=== PATIENT | male | born 1955 | race Two or more races ===

== ENCOUNTER 2018-01-02 20:20 | Emergency (ER) | payer MEDICAID ==
[~2018-01-02] VITALS: Ht 185.4 cm; Wt 68.0 kg
[2018-01-02 20:26] VITALS: BP 143/85
[2018-01-02] MEDS ORDERED: VITAMIN B-1100 MG ORAL (20:29)
[2018-01-02] MEDS ORDERED: VITAMIN D250000 UNI1 ORAL (20:29)
[2018-01-02] MEDS ORDERED: FOLIC ACID1 MG ORAL (20:29)
[2018-01-02] MEDS ORDERED: IBUPROFEN600 MG ORAL (20:29)
[2018-01-02] MEDS ORDERED: DAILY VITE1 EACH ORAL (20:29)
[2018-01-02] MEDS ORDERED: BANOPHEN25 M1 PO (20:29)
[2018-01-02 21:00] VITALS: BP 137/88
--- NOTE | 2018-01-03 16:14 | Emergency Room Report ---
History of Present Illness General Chief Complaint: Multiple Trauma/Fall Source: Patient Present Illness HPI 62-year-old male presents ED for evaluation. Patient brought in by EMS. Patient is status post alcohol intoxication. Admits to drinking today. Patient was found on the floor. Patient denies falling or hitting his head. Denies drug use. Denies any headache. Denies any nausea or vomiting. Denies any abdominal pain. No other aggravating relieving factors. Denies any other associated symptoms Allergies: Coded Allergies: PENICILLINS (Verified Allergy, Unknown, 01/02/18) Patient History Past Medical History: none Past Surgical History: none Pertinent Family History: none Social History: Reports: alcohol use; Denies: smoking, drug use Immunizations: UTD Reviewed Nursing Documentation: PMH: Agreed; PSxH: Agreed Review of Systems All Other Systems: negative except mentioned in HPI Physical Exam Vital Signs Date Time Temp Pulse Resp B/P (MAP) Pulse Ox O2 Delivery O2 Flow Rate FiO2 01/02/18 20:16 97.8 74 16 143/85 100 Room Air 97.9 Sp02 EP Interpretation: reviewed, normal General Appearance: no apparent distress, alert, GCS 15, non-toxic Head: normocephalic, atraumatic Eyes: bilateral eye normal inspection, bilateral eye PERRL ENT: hearing grossly normal, normal pharynx, no angioedema, normal voice Neck: full range of motion, supple/symm/no masses Respiratory: chest non-tender, lungs clear, normal breath sounds, speaking full sentences Cardiovascular #1: regular rate, rhythm, no edema Cardiovascular #2: 2+ carotid (R), 2+ carotid (L), 2+ radial (R), 2+ radial (L) , 2+ dorsalis pedis (R), 2+ dorsalis pedis (L) Gastrointestinal: normal bowel sounds, non tender, soft, non-distended, no guarding, no rebound Rectal: deferred Genitourinary: normal inspection, no CVA tenderness Musculoskeletal: back normal, gait/station normal, normal range of motion, non- tender Neurologic: alert, oriented x3, responsive, motor strength/tone normal, sensory intact, speech normal Psychiatric: judgement/insight normal, memory normal, mood/affect normal, no suicidal/homicidal ideation Reflexes: 3+ bicep (R), 3+ bicep (L), 3+ tricep (R), 3+ tricep (L), 3+ knee (R) , 3+ knee (L) Skin: normal color, no rash, warm/dry, well hydrated Lymphatic: no adenopathy Medical Decision Making Diagnostic Impression: Primary Impression: Alcohol intoxication Qualified Codes: F10.920 - Alcohol use, unspecified with intoxication, uncomplicated ER Course Hospital Course 62 yo M presents to ED s/p ETOH. found on floor Clinical course Patient placed on stretcher. Given that patient is able to provide an adequate history, I see no need to check blood work or place an IV. Patient does not require CT imaging. Patient is walking with steady gait. Patient is asking to be discharged. Patient is safe for discharge Diagnosis - ETOH intoxication stable and discharged to home. Followup with PMD. Return to ED if symptoms recur or worsen Last Vital Signs Date Time Temp Pulse Resp B/P (MAP) Pulse Ox O2 Delivery O2 Flow Rate FiO2 01/02/18 21:00 97.9 16 137/88 100 Room Air 97.9 01/02/18 20:16 74 Status: improved Disposition: HOME, SELF-CARE Condition: Stable Patient Instructions: Alcohol Intoxication, [id number] Jacek Emerson MD Jan 03, 2018 16:14
== END 2018-01-02 21:00 | disposition home or self-care (01) ==
LOC: EDBD 20:20 → EMR 20:42
DX: F17.200 Nicotine dependence, unspecified, uncomplicated (principal); Z88.0 Allergy status to penicillin
CPT/HCPCS: 99284